=== PATIENT | male | born 1985 | race Caucasian/White ===

== ENCOUNTER 2022-12-18 02:11 | Emergency (ER) | payer OTHER ==
[~2022-12-18] VITALS: Ht 172.7 cm; Wt 113.4 kg
[2022-12-18 02:20] VITALS: BP_SYST 133
--- NOTE | 2022-12-18 02:26 | NUR ---
Patient to [facility] for evaluation. Side rails up. Report given to Catarino BERNARDO.
--- NOTE | 2022-12-18 02:27 | NUR ---
ER at bedside examining patient.
[2022-12-18] MEDS ORDERED: IBUPROFEN 600 MG TABLET PO ONE (02:30)
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
[2022-12-18] MEDS ORDERED: TRAM50TA2 PO (02:44)
[2022-12-18] MEDS ORDERED: IBUP-1969 PO (02:44)
[2022-12-18] MEDS ORDERED: SILVER SULFADIAZINE 1%, 25 GM TOPICAL CREAM (SSD) TP ONE (02:45)
--- NOTE | 2022-12-18 02:55 | NUR ---
Patient given written and verbal discharge instructions and verbalizes understanding. ER DR. HICKEY discussed with patient the results and treatment provided. Patient in stable condition. ID arm band removed. Rx of MOTRIN AND TRAMADOL given. Patient educated on pain management and to follow up with PMD. Pain Scale 4/10. Opportunity for questions provided and answered. Medication side effect fact sheet provided.
[2022-12-18 02:56] VITALS: BP_SYST 133
== END 2022-12-18 02:55 | disposition home or self-care (01) ==
LOC: SED 02:11
DX: T23.101A Burn of first degree of right hand, unspecified site, initial encounter (principal); Z88.1 Allergy status to other antibiotic agents; Z79.899 Other long term (current) drug therapy; X10.2XXA Contact with fats and cooking oils, initial encounter; Y93.G3 Activity, cooking and baking; Y92.89 Other specified places as the place of occurrence of the external cause; Y99.8 Other external cause status
CPT/HCPCS: 99282; 99283